=== PATIENT | female | born 1985 | race Caucasian/White ===

== ENCOUNTER 2016-04-25 14:25 | Emergency (ER) | payer SELFPAY ==
--- NOTE | 2016-04-25 14:38 | ER Document Report ---
ED Medical Screen (RME) - General Stated Complaint: ABDOMINAL PAIN Notes: Patient states she is 9 weeks , and woke up this morning with vaginal bleeding and mild lower abdominal cramping and low back pain. Passed a clot at work today. 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 I have greeted and performed a rapid initial assessment of this patient. A comprehensive ED assessment and evaluation of the patient, analysis of test results and completion of the medical decision making process will be conducted by additional ED providers. TRAVEL OUTSIDE OF THE [place] IN LAST 30 DAYS: No - Related Data Allergies/Adverse Reactions: No Known Allergies Allergy (Verified 03/28/15 11:54) Past Medical History - Past Medical History Cardiac Medical History: Denies: Hx Hypertension Neurological Medical History: Reports: Hx Migraine - Immunizations Hx Diphtheria, Pertussis, Tetanus Vaccination: No Physical Exam - Abdominal Inspection: Normal Tenderness: Tender - lower abdomen
[2016-04-25 15:26] LABS: ABSOLUTE EOSINOPHILS # (AUTO) 0.5 10^3/uL (0.0-0.6); ABSOLUTE MONOCYTES (AUTO) 0.5 10^3/uL (0.1-1.4); BASOPHILS % (AUTO) 0.3 % (0-2); EOSINOPHILS % (AUTO) 5.1 % (0-6); HEMATOCRIT 35.6 % (36.0-47.0); HEMOGLOBIN 12.4 g/dL (12.0-15.5); HGB HCT DIFFERENCE 1.6; LYMPHOCYTES % (AUTO) 19.8 % (13-45); MEAN CORPUSCULAR HEMOGLOBIN 30.4 pg (27.0-33.4); MEAN CORPUSCULAR HGB CONC 34.7 g/dL (32.0-36.0); MEAN CORPUSCULAR VOLUME 88 fl (80-97); RED BLOOD COUNT 4.06 10^6/uL (3.72-5.28); SEGMENTED NEUTROPHILS % (AUTO) 69.8 % (42-78); WHITE BLOOD COUNT 10.1 10^3/uL (4.0-10.5)
[2016-04-25 15:33] LABS: APPEARANCE,URINE SLIGHTLY-CLOUDY; BILIRUBIN,URINE NEGATIVE (NEGATIVE); GLUCOSE, URINE NEGATIVE (NEGATIVE); KETONES,URINE NEGATIVE (NEGATIVE); LEUKOCYTE ESTERASE,URINE NEGATIVE (NEGATIVE); NITRITE,URINE NEGATIVE (NEGATIVE); PROTEIN,URINE 100 mg/dL (NEGATIVE); URINE SPECIFIC GRAVITY 1.026; UROBILINOGEN,URINE NEGATIVE mg/dL (<2.0)
--- NOTE | 2016-04-25 15:45 | ER Document Report ---
ED GI/ - General Chief Complaint: Vaginal Bleeding Stated Complaint: ABDOMINAL PAIN Information source: Patient Notes: 30-year-old 014 followed by [facility] PRIOR AUTHORIZATION NURSE who was supposedly around 10 weeks by dates with a recent examination on Tuesday who presents today with some bleeding and small clots starting this morning. She denies any nausea, vomiting , fevers, diarrhea, dysuria, flank pain, or other review of systems. She states some mild nonradiating suprapubic abdominal "cramping" without aggravating relieving factors. TRAVEL OUTSIDE OF THE [place] IN LAST 30 DAYS: No - HPI Patient complains to provider of: Other - See above Onset: Other - See above Timing/Duration: Sudden Quality of pain: Cramping Severity at maximum: Mild Severity in ED: Mild Pain Level: Denies Location: Suprapubic Vaginal bleeding (Compared to normal period): Passing tissue Sexual history: Active Associated symptoms: Other - See above Exacerbated by: Denies Relieved by: Denies Similar symptoms previously: No Recently seen / treated by doctor: Yes - Related Data Allergies/Adverse Reactions: No Known Allergies Allergy (Verified 03/28/15 11:54) Past Medical History - General Information source: Patient - Social History Smoking Status: Former Smoker Cigarette use (# per day): No Chew tobacco use (# tins/day): No Smoking Education Provided: No Frequency of alcohol use: Occasional Drug Abuse: None Family History: Reviewed & Not Pertinent, Hypertension, Other - Migraine Patient has suicidal ideation: No Patient has homicidal ideation: No - Past Medical History Cardiac Medical History: Denies: Hx Hypertension Neurological Medical History: Reports: Hx Migraine Renal/ Medical History: Denies: Hx Peritoneal Dialysis - Immunizations Hx Diphtheria, Pertussis, Tetanus Vaccination: No Review of Systems - Review of Systems Constitutional: denies: Fever EENT: denies: Eye discharge, Nose discharge Cardiovascular: denies: Chest pain Respiratory: denies: Short of breath Gastrointestinal: denies: Vomiting Genitourinary: denies: Dysuria Musculoskeletal: denies: Leg swelling Skin: Other - no hives. denies: Rash Neurological/Psychological: Other - no slurred speech -: Yes All other systems reviewed and negative Physical Exam - Vital signs Vitals: Temp Pulse Resp BP Pulse Ox 98.1 F 75 16 138/67 H 98 04/25/16 14:36 04/25/16 14:36 04/25/16 14:36 04/25/16 14:36 04/25/16 14:36 Notes: Reviewed vital signs and nursing note as charted by RN. CONSTITUTIONAL: Alert and oriented and responds appropriately to questions. Well -appearing; well-nourished HEAD: Normocephalic; atraumatic CARD: Regular rate and rhythm; no murmurs, no clicks, no rubs, no gallops; symmetric distal pulses RESP: Normal chest excursion without splinting or tachypnea; breath sounds clear and equal bilaterally; no wheezes, no rhonchi, no rales ABD/GI: Normal bowel sounds; non-distended; soft, non-tender, no rebound, no guarding; no palpable organomegaly or masses BACK: The back appears normal and is non-tender to palpation, there is no CVA tenderness EXT: Normal ROM in all joints; non-tender to palpation; no cyanosis, no effusions, no edema SKIN: Normal color for age and race; warm; dry; good turgor; capillary refill < 2 seconds; no acute lesions noted NEURO: Moves all extremities equally; Motor and sensory function intact PSYCH: The patient's mood and manner are appropriate. Grooming and personal hygiene are appropriate. Course - Re-evaluation Re-evalutation: 04/25/16 15:44 Given the history and physical examination we'll perform a pelvic exam, patient obtain a CBC, check the patient's Rh status, and perform a pelvic ultrasound. Patient currently denies any pain at this time. Vital signs are stable. Pelvic exam shows no external lesions, no internal lesions, no CMT, no copious discharge, no vaginal bleeding, no adenxal masses. 04/25/16 16:54 Ultrasound as recorded. Quantitative hCG on 5000. No obvious urinary tract infection. Patient is Rh- and I discussed the risks and benefits of Rhogam administration. She understands and has consented to receive the low Steven. Patient will be discharged home in precautions and follow-up with her PRIOR AUTHORIZATION NURSE. - Vital Signs Vital signs: Temp Pulse Resp BP Pulse Ox 98.1 F 75 16 138/67 H 98 04/25/16 14:36 04/25/16 14:36 04/25/16 14:36 04/25/16 14:36 04/25/16 14:36 - Laboratory Result Diagrams: 04/25/16 15:12 04/25/16 15:12 Laboratory results interpreted by me: 04/25/16 04/25/16 04/25/16 15:12 15:12 15:20 Hct 35.6 L RDW 15.0 H Glucose 114 H Beta HCG, Quant 5396.10 H Urine Protein 100 H Urine Blood LARGE H Discharge - Discharge Clinical Impression: Threatened miscarriage Condition: Good Disposition: HOME, SELF-CARE Additional Instructions: Come back immediately with any increased bleeding, lightheadedness, fever, pain , or any other acute problems. Please follow-up with your primary care physician in 72 hours or return to the emergency department for repeat quantitative hCG level and possible repeat ultrasound.
[2016-04-25 15:49] LABS: ALANINE AMINOTRANSFERASE 23 U/L (9-52); ALBUMIN 3.9 g/dL (3.5-5.0); ALKALINE PHOSPHATASE 52 U/L (38-126); ANION GAP 12 (5-19); ASPARTATE AMINO TRANSFERASE 19 U/L (14-36); BILIRUBIN,TOTAL 0.4 mg/dL (0.2-1.3); BLOOD UREA NITROGEN 11 mg/dL (7-20); CALCIUM 9.7 mg/dL (8.4-10.2); CARBON DIOXIDE 22 mmol/L (22-30); CHLORIDE 107 mmol/L (98-107); CREATININE RESULT 0.86 mg/dL (0.52-1.25); GLUCOSE 114 mg/dL (75-110); POTASSIUM 3.6 mmol/L (3.6-5.0); SODIUM 140.8 mmol/L (137-145); TOTAL PROTEIN 6.7 g/dL (6.3-8.2)
[2016-04-25 17:28] VITALS: BP 136/74
[2016-04-25 18:01] LABS: CHLAM PCR NOT DETECTED (NOT DETECT)
== END 2016-04-25 17:28 | disposition home or self-care (01) ==
LOC: ER 14:25
DX: O20.0 Threatened abortion (principal); O36.0990 Maternal care for other rhesus isoimmunization, unspecified trimester, not applicable or unspecified; Z3A.00 Weeks of gestation of pregnancy not specified; Z87.891 Personal history of nicotine dependence
CPT/HCPCS: 99284; 96372; 86900; 86901; 36415; 87086; 87210; 86850; 84702; 85025; 80053; 81001; 87491; 87591; 76817; J2790

== ENCOUNTER → 2017-04-08 | Outpatient (CLI) | payer BC ==
[2017-04-08 17:48] LABS: ABSOLUTE EOSINOPHILS # (AUTO) 0.5 10^3/uL (0.0-0.6); ABSOLUTE LYMPHOCYTES (AUTO) 1.9 10^3/uL (0.5-4.7); ABSOLUTE MONOCYTES (AUTO) 0.7 10^3/uL (0.1-1.4); BASOPHILS % (AUTO) 0.2 % (0-2); EOSINOPHILS % (AUTO) 3.2 % (0-6); HEMATOCRIT 34.7 % (36.0-47.0); HEMOGLOBIN 11.9 g/dL (12.0-15.5); LYMPHOCYTES % (AUTO) 13.7 % (13-45); MEAN CORPUSCULAR HEMOGLOBIN 29.3 pg (27.0-33.4); MEAN CORPUSCULAR HGB CONC 34.2 g/dL (32.0-36.0); MEAN CORPUSCULAR VOLUME 86 fl (80-97); MONOCYTES % (AUTO) 5.2 % (3-13); PLATELET COUNT 263 10^3/uL (150-450); RED BLOOD COUNT 4.06 10^6/uL (3.72-5.28); RED CELL DISTRIBUTION WIDTH 16.2 % (11.5-14.0); SEGMENTED NEUTROPHILS % (AUTO) 77.7 % (42-78); TOTAL CELLS COUNTED % (AUTO) 100 %; WHITE BLOOD COUNT 14.1 10^3/uL (4.0-10.5)
[2017-04-08 18:10] LABS: ALANINE AMINOTRANSFERASE 19 U/L (9-52); ALBUMIN 3.9 g/dL (3.5-5.0); ALKALINE PHOSPHATASE 50 U/L (38-126); ASPARTATE AMINO TRANSFERASE 12 U/L (14-36); BILIRUBIN,DIRECT 0.2 mg/dL (0.0-0.4); BILIRUBIN,TOTAL 0.2 mg/dL (0.2-1.3); TOTAL PROTEIN 6.4 g/dL (6.3-8.2); URIC ACID 4.7 mg/dL (2.5-6.2)
[2017-04-08 18:21] LABS: URINE AMPHETAMINES SCREEN NEGATIVE; URINE BARBITURATES SCREEN NEGATIVE; URINE BENZODIAZEPINES SCREEN NEGATIVE; URINE COCAINE SCREEN NEGATIVE; URINE MARIJUANA (THC) SCREEN NEGATIVE; URINE METHADONE SCREEN NEGATIVE; URINE PHENCYCLIDINE SCREEN NEGATIVE
[2017-04-11 07:58] LABS: URINE PROTEIN 11.8 mg/dL (<12)
[2017-04-11 07:59] LABS: URINE CREATININE 130.1 mg/dL (16-327)
[2017-04-11 08:03] LABS: 24 HOUR URINE PROTEIN RESULT 132 mg/day (42-225); CREATININE 0.75 mg/dL (0.52-1.25)
== END ==
LOC: LAB 16:56
PROVIDERS: ATTEND Obstetrics & Gynecology
DX: O13.9 Gestational [pregnancy-induced] hypertension without significant proteinuria, unspecified trimester (principal); Z3A.00 Weeks of gestation of pregnancy not specified; Z36.5 Encounter for antenatal screening for isoimmunization; Z36.89 Encounter for other specified antenatal screening; Z36.85 Encounter for antenatal screening for Streptococcus B
CPT/HCPCS: 36415; 80076; 80307; 82565; 82575; 84156; 84550; 85025; 86787; 86850; 86900; 86901; 87086

== ENCOUNTER 2018-10-29 09:39 | Emergency (ER) | payer BC, MEDICAID ==
[2018-10-29] MEDS ORDERED: CIPROFLOXACIN-HC OTIC SUSP 10 ML AD ONE (11:21)
[2018-10-29] MEDS ORDERED: IBUPROFEN 600 MG TABLET PO ONE (11:22)
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
[2018-10-29 11:49] VITALS: BP 159/76
== END 2018-10-29 11:53 | disposition home or self-care (01) ==
LOC: ER 09:39
DX: H60.501 Unspecified acute noninfective otitis externa, right ear (principal); H92.01 Otalgia, right ear; F17.200 Nicotine dependence, unspecified, uncomplicated
CPT/HCPCS: 99282; J3490